=== PATIENT | male | born 1960 | race Caucasian/White ===

== ENCOUNTER 2017-03-23 14:36 | Emergency (ER) | payer OTHER ==
[~2017-03-23] VITALS: Ht 165.1 cm; Wt 72.6 kg
[~2017-03-23 14:36] MED LIST: ERYTHROMYCIN3.5 GM OU
[2017-03-23] MEDS ORDERED: OCUFLOX5 ML OPTH (14:53)
== END 2017-03-23 14:57 | disposition home or self-care (01) ==
LOC: ED 14:36
DX: H10.32 Unspecified acute conjunctivitis, left eye (principal); K21.9 Gastro-esophageal reflux disease without esophagitis; F17.200 Nicotine dependence, unspecified, uncomplicated; Z86.19 Personal history of other infectious and parasitic diseases; Z88.0 Allergy status to penicillin
CPT/HCPCS: 99283

== ENCOUNTER 2017-06-06 09:58 | Emergency (ER) | payer OTHER ==
[~2017-06-06] VITALS: Ht 165.1 cm; Wt 70.3 kg
[~2017-06-06 09:58] MED LIST changes: +OCUFLOX5 ML OPTH
[2017-06-06] MEDS ORDERED: VENTOLIN HFA18 GM INH ×2 (10:13→10:23)
[2017-06-06] MEDS ORDERED: ZITHROMAX250 MG PO (10:23)
[2017-06-06] MEDS ORDERED: METHYLPREDNISOLO4 M1 PO (10:23)
== END 2017-06-06 11:00 | disposition home or self-care (01) ==
LOC: ED 09:58
DX: J45.909 Unspecified asthma, uncomplicated (principal); F17.200 Nicotine dependence, unspecified, uncomplicated; K21.9 Gastro-esophageal reflux disease without esophagitis; Z88.0 Allergy status to penicillin; Z79.2 Long term (current) use of antibiotics
CPT/HCPCS: 99283

== ENCOUNTER 2018-08-05 06:14 | Emergency (ER) | payer OTHER ==
[~2018-08-05] VITALS: Ht 165.1 cm; Wt 73.9 kg
[~2018-08-05 06:14] MED LIST changes: +METHYLPREDNISOLO4 M1 PO; +VENTOLIN HFA18 GM INH; +ZITHROMAX250 MG PO
[2018-08-05] MEDS ORDERED: DOXAZOSIN MESYLA1 MG PO (06:21)
== END 2018-08-05 06:51 | disposition home or self-care (01) ==
LOC: ED 06:14
DX: J45.901 Unspecified asthma with (acute) exacerbation (principal); K21.9 Gastro-esophageal reflux disease without esophagitis; F17.200 Nicotine dependence, unspecified, uncomplicated; Z88.0 Allergy status to penicillin; Z79.899 Other long term (current) drug therapy
CPT/HCPCS: 99284

== ENCOUNTER 2019-03-30 06:54 | Emergency (ER) | payer OTHER ==
[~2019-03-30] VITALS: Ht 165.1 cm; Wt 73.9 kg
[~2019-03-30 06:54] MED LIST changes: +DOXAZOSIN MESYLA1 MG PO
[2019-03-30] MEDS ORDERED: ROBITUSSIN COU237 M2 PO (07:20)
[2019-03-30] MEDS ORDERED: VENTOLIN HFA18 GM INH (07:22)
[2019-03-30] MEDS ORDERED: SEREVENT DISKU1 PUFF INH (07:26)
== END 2019-03-30 07:35 | disposition home or self-care (01) ==
LOC: ED 06:54
DX: J44.9 Chronic obstructive pulmonary disease, unspecified (principal); F17.200 Nicotine dependence, unspecified, uncomplicated; Z88.0 Allergy status to penicillin
CPT/HCPCS: 99283

== ENCOUNTER 2021-03-21 21:29 | Emergency (ER) | payer OTHER ==
[~2021-03-21] VITALS: Ht 165.1 cm; Wt 68.0 kg
[~2021-03-21 21:29] MED LIST changes: +ROBITUSSIN COU237 M2 PO; +SEREVENT DISKU1 PUFF INH
[2021-03-21] MEDS ORDERED: DOXYCYCLINE HY100 MG PO (22:27)
[2021-03-21] MEDS ORDERED: HYDROCODON-ACE1 EA10 PO (22:27)
== END 2021-03-21 22:48 | disposition home or self-care (01) ==
LOC: ED 21:29
PROC: 0S9D3ZZ Drainage of Left Knee Joint, Percutaneous Approach (ICD-10-PCS; principal; 2021-03-21)
DX: S81.052A Open bite, left knee, initial encounter (principal); M19.90 Unspecified osteoarthritis, unspecified site; N18.9 Chronic kidney disease, unspecified; F17.200 Nicotine dependence, unspecified, uncomplicated; Z88.0 Allergy status to penicillin; K21.9 Gastro-esophageal reflux disease without esophagitis; W54.0XXA Bitten by dog, initial encounter
CPT/HCPCS: 20610; 73560; 89051; 89060; 99283-25

== ENCOUNTER 2021-03-30 02:32 | Emergency (ER) | payer OTHER ==
[~2021-03-30] VITALS: Ht 165.1 cm; Wt 68.8 kg
[~2021-03-30 02:32] MED LIST changes: +DOXYCYCLINE HY100 MG PO; +HYDROCODON-ACE1 EA10 PO
--- OUTSIDE RECORDS SUMMARY | 2021-03-30 02:34 | XMS ---
PreManage Notification: BLAIR MCDOWELL Security Facilities Locator Events No recent Security Events currently on file CRITERIA MET - [facility] [place] - 2 Visits in 30 Days CARE PROVIDERS There are no care providers on record at this time. Louis has no Care Guidelines for this patient. Tone VISIT COUNT (12 MO.) 3 [facility] [facility]. TOTAL 3 NOTE: Visits indicate total known visits. ED/C VISIT TRACKING (12 MO.) 03/30/2021 02:32 [facility] [place] TYPE: Emergency COMPLAINT: - LT KNEE PAIN 03/21/2021 21:29 [facility] [place] TYPE: Emergency COMPLAINT: - DOG BITE DIAGNOSES: - Bitten by dog, initial encounter - Open bite, left knee, initial encounter - Chronic kidney disease, unspecified - Gastro-esophageal reflux disease without esophagitis - Nicotine dependence, unspecified, uncomplicated - Allergy status to penicillin - Unspecified osteoarthritis, unspecified site 09/19/2020 12:20 [facility] [place] TYPE: Emergency COMPLAINT: - CHEST PAIN DIAGNOSES: - Pleurodynia - Allergy status to penicillin - Nicotine dependence, unspecified, uncomplicated INPATIENT VISIT TRACKING (12 MO.) No inpatient visits to display in this time frame [email or web address]
[2021-03-30] MEDS ORDERED: CEPHALEXIN500 MG PO (03:17)
== END 2021-03-30 03:37 | disposition home or self-care (01) ==
LOC: ED 02:32
DX: T81.41XA Infection following a procedure, superficial incisional surgical site, initial encounter (principal); L08.9 Local infection of the skin and subcutaneous tissue, unspecified; M19.90 Unspecified osteoarthritis, unspecified site; K21.9 Gastro-esophageal reflux disease without esophagitis; F17.200 Nicotine dependence, unspecified, uncomplicated; Z88.0 Allergy status to penicillin; Z79.899 Other long term (current) drug therapy
CPT/HCPCS: 99282

== ENCOUNTER 2024-10-06 11:03 | Emergency (ER) | payer OTHER ==
[~2024-10-06] VITALS: Ht 165.1 cm; Wt 66.8 kg
[~2024-10-06 11:03] MED LIST changes: +CEPHALEXIN500 MG PO
--- OUTSIDE RECORDS SUMMARY | 2024-10-06 11:06 | XMS ---
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 - Patient eloped before treatment completed. - Patient with suicidal and/or homicidal ideations eloped. Details: Patient LWBS. CRITERIA MET - Group Notification CARE PROVIDERS -[facility] Dentist: [employer] PHONE: [phone] -Isabelle- Dentist: [employer] PHONE: [phone] [facility]: [facility] PHONE: [phone] Louis has no Care Guidelines for this patient. Tone VISIT COUNT (12 MO.) 1 ROBERT Lopez TOTAL 1 NOTE: Visits indicate total known visits. ED/UCC VISIT TRACKING (12 MO.) 10/06/2024 11:03 [facility] [place] TYPE: Emergency COMPLAINT: - EYE PROBLEM INPATIENT VISIT TRACKING (12 MO.) No inpatient visits to display in this time frame [email or web address]
[2024-10-06] MEDS ORDERED: TETRACAINE HCL 0.5% 4 ML BTL OS SCH (11:45)
[2024-10-06] MEDS ORDERED: FLUORESCEIN SOD 1 EA STRP OS ONE (12:00)
[2024-10-06] MEDS ORDERED: GENTAMICIN SULFA5 ML OS (14:11)
[2024-10-06] MEDS ORDERED: ACULAR5 ML OS (14:11)
[2024-10-06 14:33] VITALS: BP 165/91
== END 2024-10-06 14:34 | disposition home or self-care (01) ==
LOC: ED 11:03
DX: H01.006 Unspecified blepharitis left eye, unspecified eyelid (principal); K21.9 Gastro-esophageal reflux disease without esophagitis; F17.200 Nicotine dependence, unspecified, uncomplicated; Z88.0 Allergy status to penicillin
CPT/HCPCS: 99283